=== PATIENT | male | born 1970 | race Caucasian/White ===

== ENCOUNTER 2020-07-04 07:27 | Outpatient (CLI) | payer MEDICARE, MEDICAID, SELFPAY | END 2020-07-04 07:28 | disposition home or self-care (01) | PROVIDERS: PCP Family Medicine; Visit Provider Family Medicine | DX: Z01.10 Encounter for examination of ears and hearing without abnormal findings (principal) | CPT/HCPCS: 92552; 92556; 92567 ==

== ENCOUNTER 2021-07-07 08:51 | Outpatient (CLI) | payer MEDICARE, MEDICAID, SELFPAY | END 2021-07-07 08:52 | disposition home or self-care (01) | PROVIDERS: Visit Provider Family Medicine | DX: Z01.10 Encounter for examination of ears and hearing without abnormal findings (principal) | CPT/HCPCS: 92552; 92556; 92567 ==

== ENCOUNTER 2022-07-17 08:49 | Outpatient (CLI) | payer MEDICARE, MEDICAID, SELFPAY | END 2022-07-17 08:50 | disposition home or self-care (01) | LOC: ANHAUDIO 08:52 | PROVIDERS: PCP Family Medicine; Visit Provider Family Medicine | DX: F84.0 Autistic disorder (principal); H90.42 Sensorineural hearing loss, unilateral, left ear, with unrestricted hearing on the contralateral side | CPT/HCPCS: 92552; 92556; 92567 ==

== ENCOUNTER 2023-08-05 07:55 | Outpatient (CLI) | payer MEDICARE, MEDICAID, SELFPAY | END 2023-08-05 07:56 | disposition home or self-care (01) | LOC: ANHAUDIO 07:59 | PROVIDERS: PCP Family Medicine; Visit Provider Family Medicine | DX: H90.42 Sensorineural hearing loss, unilateral, left ear, with unrestricted hearing on the contralateral side (principal) | CPT/HCPCS: 92557; 92567 ==

== ENCOUNTER 2024-08-10 07:59 | Outpatient (CLI) | payer MEDICARE, MEDICAID, SELFPAY ==
--- OUTSIDE RECORDS SUMMARY | 2024-08-10 08:09 | XMS_ITS ---
Author Organization Unknown Address [address] [place] [phone] Phone Care Team Providers Care Plastics Factory Worker Name Role Phone DMITRI NUÑEZ Attending Unavailable MARCELINO Nova Primary Unavailable Immunization Immunization Date Status Additional Notes Code Code System Hep B, adult 06/12/2014 Completed 43 CVX Hep B, adult 07/31/2014 Completed 43 CVX Hep B, adult 01/01/2015 Completed 43 CVX Tdap 08/21/2013 Completed 115 CVX Tdap 09/15/2023 Completed 115 CVX Influenza, split virus, trivalent, preservative 02/21/2013 Completed 141 CVX Influenza, split virus, trivalent, preservative 02/08/2014 Completed 141 CVX Influenza, split virus, trivalent, preservative 01/19/2024 Completed 141 CVX Influenza, split virus, quadrivalent, preservative 01/20/2017 Completed 158 C VX Influenza, split virus, quadrivalent, preservative 01/26/2018 Completed 158 C VX Influenza, split virus, quadrivalent, preservative 01/25/2019 Completed 158 C VX Influenza, split virus, quadrivalent, preservative 01/17/2020 Completed 158 C VX Influenza, split virus, quadrivalent, preservative 01/22/2021 Completed 158 C VX Influenza, split virus, quadrivalent, preservative 01/14/2022 Completed 158 C VX Influenza, split virus, quadrivalent, preservative 01/13/2023 Completed 158 C VX COVID-19, mRNA, LNP-S, PF, 3 0 mcg/0.3 mL dose 05/30/2020 Completed 208 CVX COVID-19, mRNA, LNP-S, PF, 3 0 mcg/0.3 mL dose 06/20/2020 Completed 208 CVX COVID-19, mRNA, LNP-S, PF, 3 0 mcg/0.3 mL dose 05/08/2021 Completed 208 CVX COVID-19, mRNA, LNP-S, PF, 5 0 mcg/0.5 mL 01/14/2024 Completed 312 CVX Results LIPID PANEL - Collect Date/T taz: 07/06/2023 07:25 [facility] ID: [id number] [place], [phone] LOINC: 94532-5 Test Value Unit Reference Range Code Code System Flag FASTING NO CHOLESTEROL 177 mg/dL L=0 H=200 3-3 LOINC TRIGLYCERIDE 352 mg/dL L=0 H=150 1-8 LOINC H HDL 29 mg/dL L=40 H=60 2084-9 LOINC L LDL 104 mg/dL 2088-1 LOINC TSH - Collect Date/Time: 07:25 [facility] ID: [id number] [place], [id number] LOINC: 77072-9 Test Value Unit Reference Range Code Code System Flag TSH. 2.590 uIU/L L=0.470 H=4.680 90316-1 LOINC T4 FREE - Collect Date/Time: 07/06/2023 07:25 [facility] ID: [id number] [place], [place], [phone] LOINC: 3024-7 Test Value Unit Reference Range Code Code System Flag T4, FREE 0.79 ng/dL L=0.78 H=2.19 3024-7 LOINC COMPREHENSIVE METABOLIC PANE L - Collect Date/Time: 07/06/2023 07:25 [facility] ID: [id number] [place], [phone] LOINC: 50606-2 Test Value Unit Reference Range Code Code System Flag FASTING NO BUN 21 mg/dL L=7 H=20 3094-0 LOINC H CREATININE 1.10 mg/dL L=0.66 H=1.25 2160-0 LOINC GLUCOSE 79 mg/dL L=74 H=106 2345-7 LOINC SODIUM 146 mmol/L L=132 H=144 2951-2 LOINC H POTASSIUM 3.8 mmol/L L=3.5 H=5.1 2823-3 LOINC CHLORIDE 111 mmol/L L=98 H=107 2075-0 LOINC H CO2 24.0 mmol/L L=22.0 H=30.0 2028-9 LOINC ANION GAP 15 L=10 H=20 30224-8 LOINC OSMOLALITY 304 mOs/kG L=280 H=296 50231-1 LOINC H BUN/CREAT 19.1 3097-3 LOINC CALCIUM 9.0 mg/dL L=8.3 H=10.5 98846-2 LOINC AST 33 U/L L=15 H=46 1920-8 LOINC ALT 30 U/L L=9 H=72 1742-6 LOINC ALKALINE PHOS 74 U/L L=38 H=126 6768-6 LOINC TOTAL BILI 0.3 mg/dL L=0.2 H=1.3 1975-2 LOINC ALBUMIN 4.3 G/dL L=3.5 H=5.0 1751-7 LOINC TOTAL PROTEIN 7.0 g/L L=6.3 H=8.2 2885-2 LOINC A/G RATIO 1.6 83045-0 LOINC AGE 52 99085-5 LOINC eGFR NON-AFR 75 ml/min eGFR AFR AMER 91 ml/min HEPATITIS C AB (HCV Ab) - Co llect Date/Time: 07/06/2023 07:25 [facility] ID: [id number] [place], [place], [phone] LOINC: 06815-3 Test Value Unit Reference Range Code Code System Flag Hep C Virus Ab Non Reactive Non Reactive 60757-9 LOINC SEND TO IFC? NO HIV 4th GEN Ab 1&2 p24 Ag in -house - Collect Date/Time: 07/06/2023 07:25 [facility] ID: [id number] [place], [id number] LOINC: 79874-6 Test Value Unit Reference Range Code Code System Flag HIV-1 Ab NEGATIVE NORMAL: NON REACTIVE/NE HIV-2 Ab NEGATIVE HIV-p24 Ag NEGATIVE SEND TO IFC? NO REFLEX? NO 5778-6 LOINC HGB A1C -GLYCOHEMOGLOBIN - C ollect Date/Time: 07/06/2023 07:25 [facility] ID: [id number] [place], [address] LOINC: 4548-4 Test Value Unit Reference Range Code Code System Flag HGBA1C 5.3 % 4548-4 LOINC CBC W/ DIFF - Collect Date/T taz: 07/06/2023 07:25 [facility] ID: [id number] [place], [place], [id number] LOINC: 36799-0 Test Value Unit Reference Range Code Code System Flag WBC 8.8 10^3uL L=4.8 H=10.8 RBC 4.49 10^6uL L=4.60 H=6.20 L HEMOGLOBIN 12.0 g/dL L=14.0 H=18.0 718-7 LOINC L HEMATOCRIT 37.1 VOL% L=42.0 H=52.0 4544-3 LOINC L MCV 82.6 fL L=80.0 H=94.0 MCH 26.7 pg L=27.0 H=32.0 L MCHC 32.3 g/dL L=32.0 H=36.0 PLATELETS 205 10^3uL L=100 H=400 55963-1 LOINC RDW 14.8 % L=11.7 H=15.5 %GRAN 68.9 % L=40.0 H=70.0 60973-5 LOINC %LYMPH 21.4 % L=20.0 H=45.0 736-9 LOINC %MONO 6.9 % L=2.0 H=10.0 02238-3 LOINC %EOS 0.8 % L=0.0 H=6.0 713-8 LOINC %BASO 0.9 % L=0.0 H=3.0 706-2 LOINC #NEUT 6.1 10^3uL L=1.9 H=7.6 17481-5 LOINC #LYMPH 1.9 10^3uL L=0.9 H=4.9 79857-2 LOINC #MONO 0.6 10^3uL L=0.1 H=0.9 19462-7 LOINC #EOS 0.1 10^3uL L=0.0 H=0.6 712-0 LOINC #BASO 0.08 10^3uL L=0.00 H=0.10 92955-6 LOINC #IM GRANS 0.1 10^3uL L=0.0 H=7.0 09800-7 LOINC %IM GRANS 1.1 % L=0.0 H=5.0 72097-9 LOINC %NRB 0.0 L=0.0 H=0.2 61074-5 LOINC #NRB 0.000 L=0.000 H=0.012 77416-8 LOINC MANUAL DIFF NOT INDICATED RBC MORPH NOT INDICATED Social History Type Status Start Date End Date Code Code Syst em Smoking History Never smoker (Never Smoked) 187894063 SNOMED CT Sex Male Medications Medication Start Date End Date Route Frequency Dose Code Code System Medication Instructions Home Meds Acetaminophen 325MG Oral Tablet 12/17/2017 Unknown ORAL NEEDED 325 MILLIGRAMS 352377 RxNorm TAKE 325 MILLIGRAMS ORAL NEEDED Sertraline 50MG Oral Tablet 12/17/2017 Unknown ORAL EVERY 24 HOURS 75 MILLIGRAMS 196728 RxNorm TAKE 75 MILLIGRAMS ORAL EVERY 24 HOURS MiraLAX 17GM/1Dose Oral Powder for Solution 12/17/2017 Unknown BY MOUTH NEEDED DAILY 17 GRAMS 716912 RxNorm TAKE 17 GRAMS BY MOUTH NEEDED DAILY IF NO BM IN 2 DAYS Hospital Discharge Instructions Should you have any questions prior to discharge, please contact a member of your healthcare team. If you have left the hospital and have any questions, please contact your primary care physician. Reason For Referral No Data Found Allergies and Adverse Reactions Allergy Substance Reaction Severity Start Date Concern Status Co de Code System No Known Drug Allergies Active 756108576 SNOMED-CT No Known Drug Allergies Active 898575602 SNOMED-CT Plan of Treatment No Data Found Encounters Encounter Diagnosis Start Date Code Code Sys tem Long-term current use of drug therapy 07/06/2023 710 332867 SNOMED-CT Personal Care Team Section Performer Name Performer Role Active Date Inactive Da te
--- OUTSIDE RECORDS SUMMARY | 2024-08-10 08:09 | XMS_ITS ---
Author Organization Unknown Address [address] [place] [phone] Phone Care Team Providers Care Roll Repairer Name Role Phone MARCELINO Nova Attending Unavailable Immunization Immunization Date Status Additional Notes [...] mcg/0.5 mL 01/14/2024 Completed 312 CVX Results COMPREHENSIVE METABOLIC PANE L - Collect Date/Time: 05/16/2024 07:35 [facility] ID: [id number] [address] [place], [place], [phone] LOINC: 71054-2 Test Value Unit Reference Range Code Code System Flag FASTING NO BUN 16 mg/dL L=7 H=20 3094-0 LOINC CREATININE 1.10 mg/dL L=0.66 H=1.25 2160-0 LOINC GLUCOSE 130 mg/dL L=74 H=106 2345-7 LOINC H SODIUM 142 mmol/L L=132 H=144 2951-2 LOINC POTASSIUM 3.7 mmol/L L=3.5 H=5.1 2823-3 LOINC CHLORIDE 104 mmol/L L=98 H=107 2075-0 LOINC CO2 25.0 mmol/L L=22.0 H=30.0 8-9 LOINC ANION GAP 17 L=10 H=20 49308-2 LOINC OSMOLALITY 297 mOs/kG L=280 H=296 15302-1 LOINC H BUN/CREAT 14.5 3097-3 LOINC CALCIUM 9.1 mg/dL L=8.3 H=10.5 42345-7 LOINC AST 26 U/L L=15 H=46 1920-8 LOINC ALT 27 U/L L=9 H=72 1742-6 LOINC ALKALINE PHOS 72 U/L L=38 H=126 6768-6 LOINC TOTAL BILI 0.6 mg/dL L=0.2 H=1.3 1975-2 LOINC ALBUMIN 4.6 G/dL L=3.5 H=5.0 1751-7 LOINC TOTAL PROTEIN 7.2 g/L L=6.3 H=8.2 2885-2 LOINC A/G RATIO 1.8 52169-9 LOINC AGE 53 39129-9 LOINC eGFR NON-AFR 74 ml/min eGFR AFR AMER 90 ml/min TSH - Collect Date/Time: 11/2024 07:35 [facility] ID: [id number] [place] [address], [id number] LOINC: 86650-9 Test Value Unit Reference Range Code Code System Flag TSH. 1.670 uIU/L L=0.470 H=4.680 78588-0 LOINC PSA-SCREENING - Collect Date /Time: 05/16/2024 07:35 [facility] ID: [id number] [address] [place] [address], [id number] LOINC: 2857-1 Test Value Unit Reference Range Code Code System Flag PSA SCREEN 0.7 ng/mL L=0.0 H=4.0 2857-1 LOINC LIPID PANEL - Collect Date/T taz: 05/16/2024 07:35 [facility] ID: [id number] [address] [place] [address], [id number] LOINC: 66594-8 Test Value Unit Reference Range Code Code System Flag FASTING NO CHOLESTEROL 209 mg/dL L=0 H=200 2093-3 LOINC H TRIGLYCERIDE 270 mg/dL L=0 H=150 2571-8 LOINC H HDL 33 mg/dL L=40 H=60 2085-9 LOINC L LDL 133 mg/dL 9-1 LOINC HGB A1C -GLYCOHEMOGLOBIN - C ollect Date/Time: 05/16/2024 07:35 [facility] ID: [id number] [address] [place] [address], [id number] LOINC: 4548-4 Test Value Unit Reference Range Code Code System Flag HGBA1C 5.4 % 4548-4 LOINC CBC W/ DIFF - Collect Date/T taz: 05/16/2024 07:35 [facility] ID: [id number] [address] [place], [place], [phone] LOINC: 73951-9 Test Value Unit Reference Range Code Code System Flag WBC 6.4 10^3uL L=4.8 H=10.8 RBC 5.33 10^6uL L=4.60 H=6.20 HEMOGLOBIN 14.8 g/dL L=14.0 H=18.0 718-7 LOINC HEMATOCRIT 45.2 VOL% L=42.0 H=52.0 4544-3 LOINC MCV 84.8 fL L=80.0 H=94.0 MCH 27.8 pg L=27.0 H=32.0 MCHC 32.7 g/dL L=32.0 H=36.0 PLATELETS 196 10^3uL L=100 H=400 38432-1 LOINC RDW 15.6 % L=11.7 H=15.5 H %GRAN 71.7 % L=40.0 H=70.0 86956-7 LOINC H %LYMPH 20.9 % L=20.0 H=45.0 736-9 LOINC %MONO 4.4 % L=2.0 H=10.0 35299-7 LOINC %EOS 1.9 % L=0.0 H=6.0 713-8 LOINC %BASO 0.8 % L=0.0 H=3.0 706-2 LOINC #NEUT 4.6 10^3uL L=1.9 H=7.6 80462-9 LOINC #LYMPH 1.3 10^3uL L=0.9 H=4.9 60848-3 LOINC #MONO 0.3 10^3uL L=0.1 H=0.9 86747-6 LOINC #EOS 0.1 10^3uL L=0.0 H=0.6 712-0 LOINC #BASO 0.05 10^3uL L=0.00 H=0.10 73660-5 LOINC #IM GRANS 0.0 10^3uL L=0.0 H=7.0 65896-6 LOINC %IM GRANS 0.3 % L=0.0 H=5.0 43014-2 LOINC %NRB 0.0 L=0.0 H=0.2 64485-9 LOINC #NRB 0.000 L=0.000 H=0.012 14525-6 LOINC MANUAL DIFF NOT INDICATED RBC MORPH NOT INDICATED Social History Type Status Start Date End Date Code Code Syst em Smoking History Never smoker (Never Smoked) 559180488 SNOMED CT Sex Male Medications Medication Start Date End Date Route Frequency Dose Code Code System Medication Instructions Home Meds Acetaminophen 325MG Oral Tablet 12/17/2017 Unknown ORAL NEEDED 325 MILLIGRAMS 145767 RxNorm TAKE 325 MILLIGRAMS ORAL NEEDED Sertraline 50MG Oral Tablet 12/17/2017 Unknown ORAL EVERY 24 HOURS 75 MILLIGRAMS 919777 RxNorm TAKE 75 MILLIGRAMS ORAL EVERY 24 HOURS MiraLAX 17GM/1Dose Oral Powder for Solution 12/17/2017 Unknown BY MOUTH NEEDED DAILY 17 GRAMS 125402 RxNorm TAKE 17 GRAMS BY MOUTH NEEDED [...] Code System No Known Drug Allergies Active 418442612 SNOMED-CT No Known Drug Allergies Active 208955144 SNOMED-CT Plan of Treatment No Data Found Encounters Encounter Diagnosis Start Date Code Code Sys tem Other prison (current) drug therapy 05/16/2024 SNOMED-CT Personal Care Team Section Performer Name Performer Role Active Date Inactive Da te
--- OUTSIDE RECORDS SUMMARY | 2024-08-10 08:10 | XMS_ITS ---
Author Organization Unknown Address [address] [place] [phone] Phone Care Team Providers Care Research Manager Name Role Phone ROOSEVELT DARDEN Attending Unavailable MARCELINO Nvoa Primary Unavailable Immunization Immunization Date Status Additional [...] mcg/0.5 mL 01/14/2024 Completed 312 CVX Results CBC W/ DIFF - Collect Date/T taz: 11/26/2023 12:06 [facility] ID: [id number] [address] [place], [place], [id number] LOINC: 54733-0 Test Value Unit Reference Range Code Code System Flag WBC 6.8 10^3uL L=4.8 H=10.8 RBC 4.50 10^6uL L=4.60 H=6.20 L HEMOGLOBIN 9.9 g/dL L=14.0 H=18.0 718-7 LOINC L HEMATOCRIT 33.5 VOL% L=42.0 H=52.0 4544-3 LOINC L MCV 74.4 fL L=80.0 H=94.0 L MCH 22.0 pg L=27.0 H=32.0 L MCHC 29.6 g/dL L=32.0 H=36.0 L PLATELETS 217 10^3uL L=100 H=400 59126-7 LOINC RDW 17.2 % L=11.7 H=15.5 H %GRAN 60.9 % L=40.0 H=70.0 94094-3 LOINC %LYMPH 23.1 % L=20.0 H=45.0 736-9 LOINC %MONO 8.7 % L=2.0 H=10.0 36102-9 LOINC %EOS 5.4 % L=0.0 H=6.0 713-8 LOINC %BASO 0.9 % L=0.0 H=3.0 706-2 LOINC #NEUT 4.1 10^3uL L=1.9 H=7.6 77515-7 LOINC #LYMPH 1.6 10^3uL L=0.9 H=4.9 14612-7 LOINC #MONO 0.6 10^3uL L=0.1 H=0.9 17053-6 LOINC #EOS 0.4 10^3uL L=0.0 H=0.6 712-0 LOINC #BASO 0.06 10^3uL L=0.00 H=0.10 94321-5 LOINC #IM GRANS 0.1 10^3uL L=0.0 H=7.0 60816-1 LOINC %IM GRANS 1.0 % L=0.0 H=5.0 42426-1 LOINC %NRB 0.0 L=0.0 H=0.2 57244-9 LOINC #NRB 0.000 L=0.000 H=0.012 35719-1 LOINC MANUAL DIFF NOT INDICATED RBC MORPH NOT INDICATED IRON PANEL - Collect Date/Ti me: 11/26/2023 12:06 [facility] ID: [id number] [place] [address], [id number] LOINC: Test Value Unit Reference Range Code Code System Flag IRON 35 ug/dL L=49 H=181 2498-4 LOINC L TIBC 412 ug/dL L=261 H=462 2500-7 LOINC %SATURATION 8 % L=13 H=45 2708-6 LOINC L FERRITIN - Collect Date/Time : 11/26/2023 12:06 [facility] ID: [id number] [place] [address], [id number] LOINC: 2276-4 Test Value Unit Reference Range Code Code System Flag FERRITIN 10.0 ng/mL L=17.9 H=464 2276-4 LOINC L D-DIMER (TRIAGE) - Collect D ate/Time: 11/26/2023 12:06 [facility] ID: [id number] [address] [place] [address], [id number] LOINC: 7799-0 Test Value Unit Reference Range Code Code System Flag D-DIMER 1240 ng/mL L=0 I=3931 7799-0 LOINC Social History Type Status Start Date End Date Code Code Syst em Smoking History Never smoker (Never Smoked) 073231263 SNOMED CT Sex Male Medications Medication Start Date End Date Route Frequency Dose Code Code System Medication Instructions Home Meds Acetaminophen 325MG Oral Tablet 12/17/2017 Unknown ORAL NEEDED 325 MILLIGRAMS 799322 RxNorm TAKE 325 MILLIGRAMS ORAL NEEDED Sertraline 50MG Oral Tablet 12/17/2017 Unknown ORAL EVERY 24 HOURS 75 MILLIGRAMS 635519 RxNorm TAKE 75 MILLIGRAMS ORAL EVERY 24 HOURS MiraLAX 17GM/1Dose Oral Powder for Solution 12/17/2017 Unknown BY MOUTH NEEDED DAILY 17 GRAMS 865346 RxNorm TAKE 17 GRAMS BY MOUTH NEEDED [...] Code System No Known Drug Allergies Active 693247244 SNOMED-CT No Known Drug Allergies Active 246209070 SNOMED-CT Plan of Treatment No Data Found Encounters Encounter Diagnosis Start Date Code Code Sys tem Anemia, unspecified 11/26/2023 SNOMED-C T Personal Care Team Section Performer Name Performer Role Active Date Inactive Víctor oleary
--- OUTSIDE RECORDS SUMMARY | 2024-08-10 08:10 | XMS_ITS ---
Author Organization Unknown Address [address] [place] [phone] Phone Care Team Providers Care Industrial Analyst Name Role Phone MARCELINO Nova Attending Unavailable [...] COMPREHENSIVE METABOLIC PANE L - Collect Date/Time: 08/10/2023 06:40 [facility] ID: [id number] [address] [place], [place], [phone] LOINC: 86790-4 Test Value Unit Reference Range Code Code System Flag FASTING YES BUN 16 mg/dL L=7 H=20 3094-0 LOINC CREATININE 1.10 mg/dL L=0.66 H=1.25 2160-0 LOINC GLUCOSE 113 mg/dL L=74 H=106 2345-7 LOINC H SODIUM 145 mmol/L L=132 H=144 2951-2 LOINC H POTASSIUM 4.0 mmol/L L=3.5 H=5.1 2823-3 LOINC CHLORIDE 109 mmol/L L=98 H=107 2075-0 LOINC H CO2 25.0 mmol/L L=22.0 H=30.0 8-9 LOINC ANION GAP 15 L=10 H=20 15457-1 LOINC OSMOLALITY 302 mOs/kG L=280 H=296 13409-0 LOINC H BUN/CREAT 14.5 3097-3 LOINC CALCIUM 9.1 mg/dL L=8.3 H=10.5 91955-2 LOINC AST 25 U/L L=15 H=46 1920-8 LOINC ALT 22 U/L L=9 H=72 1742-6 LOINC ALKALINE PHOS 77 U/L L=38 H=126 6768-6 LOINC TOTAL BILI 0.5 mg/dL L=0.2 H=1.3 1975-2 LOINC ALBUMIN 4.6 G/dL L=3.5 H=5.0 1751-7 LOINC TOTAL PROTEIN 7.6 g/L L=6.3 H=8.2 2885-2 LOINC A/G RATIO 1.5 53508-9 LOINC AGE 52 11616-0 LOINC eGFR NON-AFR 75 ml/min eGFR AFR AMER 91 ml/min CBC W/ DIFF - Collect Date/T taz: 08/10/2023 06:40 [facility] ID: [id number] [address] [place], [place], [id number] LOINC: 47935-2 Test Value Unit Reference Range Code Code System Flag WBC 7.6 10^3uL L=4.8 H=10.8 RBC 4.91 10^6uL L=4.60 H=6.20 HEMOGLOBIN 12.4 g/dL L=14.0 H=18.0 718-7 LOINC L HEMATOCRIT 39.7 VOL% L=42.0 H=52.0 4544-3 LOINC L MCV 80.9 fL L=80.0 H=94.0 MCH 25.3 pg L=27.0 H=32.0 L MCHC 31.2 g/dL L=32.0 H=36.0 L PLATELETS 240 10^3uL L=100 H=400 27554-6 LOINC RDW 14.6 % L=11.7 H=15.5 %GRAN 73.8 % L=40.0 H=70.0 16537-4 LOINC H %LYMPH 19.1 % L=20.0 H=45.0 736-9 LOINC L %MONO 5.4 % L=2.0 H=10.0 29395-9 LOINC %EOS 0.4 % L=0.0 H=6.0 713-8 LOINC %BASO 0.9 % L=0.0 H=3.0 706-2 LOINC #NEUT 5.6 10^3uL L=1.9 H=7.6 10897-6 LOINC #LYMPH 1.4 10^3uL L=0.9 H=4.9 17869-1 LOINC #MONO 0.4 10^3uL L=0.1 H=0.9 16242-1 LOINC #EOS 0.0 10^3uL L=0.0 H=0.6 712-0 LOINC #BASO 0.07 10^3uL L=0.00 H=0.10 36199-1 LOINC #IM GRANS 0.0 10^3uL L=0.0 H=7.0 22701-1 LOINC %IM GRANS 0.4 % L=0.0 H=5.0 96105-7 LOINC %NRB 0.0 L=0.0 H=0.2 89792-4 LOINC #NRB 0.000 L=0.000 H=0.012 74398-0 LOINC MANUAL DIFF NOT INDICATED RBC MORPH Social History Type Status Start Date End Date Code Code Syst em Smoking History Never smoker (Never Smoked) 349641207 SNOMED CT Sex Male Medications Medication Start Date End Date Route Frequency Dose Code Code System Medication Instructions Home Meds Acetaminophen 325MG Oral Tablet 12/17/2017 Unknown ORAL NEEDED 325 MILLIGRAMS 687659 RxNorm TAKE 325 MILLIGRAMS ORAL NEEDED Sertraline 50MG Oral Tablet 12/17/2017 Unknown ORAL EVERY 24 HOURS 75 MILLIGRAMS 527314 RxNorm TAKE 75 MILLIGRAMS ORAL EVERY 24 HOURS MiraLAX 17GM/1Dose Oral Powder for Solution 12/17/2017 Unknown BY MOUTH NEEDED DAILY 17 GRAMS 761351 RxNorm TAKE 17 GRAMS BY MOUTH NEEDED [...] Code System No Known Drug Allergies Active 078329841 SNOMED-CT No Known Drug Allergies Active 259677249 SNOMED-CT Plan of Treatment No Data Found Encounters Encounter Diagnosis Start Date Code Code 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
--- OUTSIDE RECORDS SUMMARY | 2024-08-10 08:10 | XMS_ITS ---
Author Organization Unknown Address [address] [place] [phone] Phone Care Team Providers Care Process Improvement Specialist Name Role Phone MARCELINO Nova Attending Unavailable [...] COMPREHENSIVE METABOLIC PANE L - Collect Date/Time: 11/16/2023 06:20 [facility] ID: [id number] [address] [place], [place], [phone] LOINC: 90374-4 Test Value Unit Reference Range Code Code System Flag FASTING YES BUN 15 mg/dL L=7 H=20 3094-0 LOINC CREATININE 1.20 mg/dL L=0.66 H=1.25 2160-0 LOINC GLUCOSE 90 mg/dL L=74 H=106 2345-7 LOINC SODIUM 141 mmol/L L=132 H=144 2951-2 LOINC POTASSIUM 4.0 mmol/L L=3.5 H=5.1 2823-3 LOINC CHLORIDE 112 mmol/L L=98 H=107 2075-0 LOINC H CO2 25.0 mmol/L L=22.0 H=30.0 8-9 LOINC ANION GAP 8 L=10 H=20 13370-3 LOINC L OSMOLALITY 292 mOs/kG L=280 H=296 68993-0 LOINC BUN/CREAT 12.5 3097-3 LOINC CALCIUM 9.3 mg/dL L=8.3 H=10.5 66054-8 LOINC AST 25 U/L L=15 H=46 1920-8 LOINC ALT 20 U/L L=9 H=72 1742-6 LOINC ALKALINE PHOS 84 U/L L=38 H=126 6768-6 LOINC TOTAL BILI 0.4 mg/dL L=0.2 H=1.3 1975-2 LOINC ALBUMIN 4.0 G/dL L=3.5 H=5.0 1751-7 LOINC TOTAL PROTEIN 6.9 g/L L=6.3 H=8.2 2885-2 LOINC A/G RATIO 1.4 29581-6 LOINC AGE 53 15701-2 LOINC eGFR NON-AFR 67 ml/min eGFR AFR AMER 81 ml/min CBC W/ DIFF - Collect Date/T taz: 11/16/2023 06:20 [facility] ID: [id number] [place], [place], [id number] LOINC: 96406-3 Test Value Unit Reference Range Code Code System Flag WBC 6.9 10^3uL L=4.8 H=10.8 RBC 4.64 10^6uL L=4.60 H=6.20 HEMOGLOBIN 10.4 g/dL L=14.0 H=18.0 718-7 LOINC L HEMATOCRIT 34.7 VOL% L=42.0 H=52.0 4544-3 LOINC L MCV 74.8 fL L=80.0 H=94.0 L MCH 22.4 pg L=27.0 H=32.0 L MCHC 30.0 g/dL L=32.0 H=36.0 L PLATELETS 264 10^3uL L=100 H=400 84813-0 LOINC RDW 17.5 % L=11.7 H=15.5 H %GRAN 64.3 % L=40.0 H=70.0 49736-3 LOINC %LYMPH 17.4 % L=20.0 H=45.0 736-9 LOINC L %MONO 9.0 % L=2.0 H=10.0 96063-8 LOINC %EOS 7.5 % L=0.0 H=6.0 713-8 LOINC H %BASO 0.9 % L=0.0 H=3.0 706-2 LOINC #NEUT 4.4 10^3uL L=1.9 H=7.6 17768-4 LOINC #LYMPH 1.2 10^3uL L=0.9 H=4.9 75613-3 LOINC #MONO 0.6 10^3uL L=0.1 H=0.9 08922-2 LOINC #EOS 0.5 10^3uL L=0.0 H=0.6 712-0 LOINC #BASO 0.06 10^3uL L=0.00 H=0.10 92802-7 LOINC #IM GRANS 0.1 10^3uL L=0.0 H=7.0 68087-9 LOINC %IM GRANS 0.9 % L=0.0 H=5.0 17013-1 LOINC %NRB 0.0 L=0.0 H=0.2 08737-9 LOINC #NRB 0.000 L=0.000 H=0.012 25594-7 LOINC MANUAL DIFF NOT INDICATED RBC MORPH NOT INDICATED Social History Type Status Start Date End Date Code Code Syst em Smoking History Never smoker (Never Smoked) 032992524 SNOMED CT Sex Male Medications Medication Start Date End Date Route Frequency Dose Code Code System Medication Instructions Home Meds Acetaminophen 325MG Oral Tablet 12/17/2017 Unknown ORAL NEEDED 325 MILLIGRAMS 494705 RxNorm TAKE 325 MILLIGRAMS ORAL NEEDED Sertraline 50MG Oral Tablet 12/17/2017 Unknown ORAL EVERY 24 HOURS 75 MILLIGRAMS 635695 RxNorm TAKE 75 MILLIGRAMS ORAL EVERY 24 HOURS MiraLAX 17GM/1Dose Oral Powder for Solution 12/17/2017 Unknown BY MOUTH NEEDED DAILY 17 GRAMS 291181 RxNorm TAKE 17 GRAMS BY MOUTH NEEDED [...] Code System No Known Drug Allergies Active 417642170 SNOMEDBrightLineCT No Known Drug Allergies Active 761813601 SNOMED-CT Plan of Treatment No Data Found Encounters Encounter Diagnosis Start Date Code Code Sys tem Other care home (current) drug therapy 11/16/2023 SNOMED-CT Personal Care Team Section Performer Name Performer Role Active Date Inactive Víctor oleary
--- OUTSIDE RECORDS SUMMARY | 2024-08-10 08:10 | XMS_ITS ---
Author Organization Unknown Address [address] [place] [phone] Phone Care Team Providers Care Hourly Team Members Name Role Phone MARCELINO Nova Attending Unavailable [...] COMPREHENSIVE METABOLIC PANE L - Collect Date/Time: 08/07/2024 07:30 [facility] ID: [id number] [address] [place], [place], [phone] LOINC: 36870-7 Test Value Unit Reference Range Code Code System Flag FASTING NO BUN 16 mg/dL L=7 H=20 3094-0 LOINC CREATININE 1.00 mg/dL L=0.66 H=1.25 2160-0 LOINC GLUCOSE 79 mg/dL L=74 H=106 2345-7 LOINC SODIUM 142 mmol/L L=132 H=144 2951-2 LOINC POTASSIUM 4.1 mmol/L L=3.5 H=5.1 2823-3 LOINC CHLORIDE 107 mmol/L L=98 H=107 2075-0 LOINC CO2 27.0 mmol/L L=22.0 H=30.0 8-9 LOINC ANION GAP 12 L=10 H=20 62556-7 LOINC OSMOLALITY 294 mOs/kG L=280 H=296 86872-6 LOINC BUN/CREAT 16.0 3097-3 LOINC CALCIUM 8.8 mg/dL L=8.3 H=10.5 39260-9 LOINC AST 22 U/L L=15 H=46 1920-8 LOINC ALT 21 U/L L=9 H=72 1742-6 LOINC ALKALINE PHOS 72 U/L L=38 H=126 6768-6 LOINC TOTAL BILI 0.2 mg/dL L=0.2 H=1.3 1975-2 LOINC ALBUMIN 3.8 G/dL L=3.5 H=5.0 1751-7 LOINC TOTAL PROTEIN 6.8 g/L L=6.3 H=8.2 2885-2 LOINC A/G RATIO 1.3 54658-5 LOINC AGE 53 48630-2 LOINC eGFR NON-AFR 83 ml/min eGFR AFR AMER 100 ml/min CBC W/ DIFF - Collect Date/T taz: 08/07/2024 07:30 [facility] ID: [id number] [address] [place], [place], [id number] LOINC: 12926-1 Test Value Unit Reference Range Code Code System Flag WBC 6.4 10^3uL L=4.8 H=10.8 RBC 4.92 10^6uL L=4.60 H=6.20 HEMOGLOBIN 13.9 g/dL L=14.0 H=18.0 718-7 LOINC L HEMATOCRIT 43.1 VOL% L=42.0 H=52.0 4544-3 LOINC MCV 87.6 fL L=80.0 H=94.0 MCH 28.3 pg L=27.0 H=32.0 MCHC 32.3 g/dL L=32.0 H=36.0 PLATELETS 226 10^3uL L=100 H=400 54237-0 LOINC RDW 13.3 % L=11.7 H=15.5 %GRAN 67.5 % L=40.0 H=70.0 50662-9 LOINC %LYMPH 18.2 % L=20.0 H=45.0 736-9 LOINC L %MONO 5.1 % L=2.0 H=10.0 69929-2 LOINC %EOS 4.3 % L=0.0 H=6.0 713-8 LOINC %BASO 1.2 % L=0.0 H=3.0 706-2 LOINC #NEUT 4.3 10^3uL L=1.9 H=7.6 79627-0 LOINC #LYMPH 1.2 10^3uL L=0.9 H=4.9 39661-7 LOINC #MONO 0.3 10^3uL L=0.1 H=0.9 20426-3 LOINC #EOS 0.3 10^3uL L=0.0 H=0.6 712-0 LOINC #BASO 0.08 10^3uL L=0.00 H=0.10 85080-2 LOINC #IM GRANS 0.2 10^3uL L=0.0 H=7.0 48365-5 LOINC %IM GRANS 3.7 % L=0.0 H=5.0 84297-8 LOINC %NRB 0.0 L=0.0 H=0.2 80123-6 LOINC #NRB 0.000 L=0.000 H=0.012 19306-6 LOINC MANUAL DIFF NOT INDICATED RBC MORPH NOT INDICATED Social History Type Status Start Date End Date Code Code Syst em Smoking History Never smoker (Never Smoked) 611671953 SNOMED CT Sex Male Medications Medication Start Date End Date Route Frequency Dose Code Code System Medication Instructions Home Meds Acetaminophen 325MG Oral Tablet 12/17/2017 Unknown ORAL NEEDED 325 MILLIGRAMS 710180 RxNorm TAKE 325 MILLIGRAMS ORAL NEEDED Sertraline 50MG Oral Tablet 12/17/2017 Unknown ORAL EVERY 24 HOURS 75 MILLIGRAMS 905247 RxNorm TAKE 75 MILLIGRAMS ORAL EVERY 24 HOURS MiraLAX 17GM/1Dose Oral Powder for Solution 12/17/2017 Unknown BY MOUTH NEEDED DAILY 17 GRAMS 040116 RxNorm TAKE 17 GRAMS BY MOUTH NEEDED [...] Code System No Known Drug Allergies Active 247337863 SNOMED-CT No Known Drug Allergies Active 497062031 SNOMED-CT Plan of Treatment No Data Found Encounters Encounter Diagnosis Start Date Code Code 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
--- OUTSIDE RECORDS SUMMARY | 2024-08-10 08:11 | XMS_ITS ---
Author Organization Unknown Address [address] [place] [phone] Phone Care Team Providers Care Junior Accountant Name Role Phone MARCELINO Nova Attending Unavailable [...] COMPREHENSIVE METABOLIC PANE L - Collect Date/Time: 05/18/2023 07:20 [facility] ID: [id number] [address] [place], [place], [phone] LOINC: 90473-0 Test Value Unit Reference Range Code Code System Flag FASTING NO BUN 16 mg/dL L=7 H=20 3094-0 LOINC CREATININE 1.10 mg/dL L=0.66 H=1.25 2160-0 LOINC GLUCOSE 67 mg/dL L=74 H=106 2345-7 LOINC L SODIUM 144 mmol/L L=132 H=144 2951-2 LOINC POTASSIUM 4.0 mmol/L L=3.5 H=5.1 2823-3 LOINC CHLORIDE 107 mmol/L L=98 H=107 2075-0 LOINC CO2 26.0 mmol/L L=22.0 H=30.0 2028-9 LOINC ANION GAP 15 L=10 H=20 88038-3 LOINC OSMOLALITY 297 mOs/kG L=280 H=296 49642-0 LOINC H BUN/CREAT 14.5 3097-3 LOINC CALCIUM 9.0 mg/dL L=8.3 H=10.5 19538-7 LOINC AST 24 U/L L=15 H=46 1920-8 LOINC ALT 22 U/L L=9 H=72 1742-6 LOINC ALKALINE PHOS 78 U/L L=38 H=126 6768-6 LOINC TOTAL BILI 0.5 mg/dL L=0.2 H=1.3 1975-2 LOINC ALBUMIN 4.4 G/dL L=3.5 H=5.0 1751-7 LOINC TOTAL PROTEIN 7.3 g/L L=6.3 H=8.2 2885-2 LOINC A/G RATIO 1.5 93632-8 LOINC AGE 52 55560-7 LOINC eGFR NON-AFR 75 ml/min eGFR AFR AMER 91 ml/min LIPID PANEL - Collect Date/T taz: 05/18/2023 07:20 [facility] ID: [id number] [place], [phone] LOINC: 16641-2 Test Value Unit Reference Range Code Code System Flag FASTING NO CHOLESTEROL 193 mg/dL L=0 H=200 3-3 LOINC TRIGLYCERIDE 304 mg/dL L=0 H=150 2571-8 LOINC H HDL 28 mg/dL L=40 H=60 2084-9 LOINC L LDL 118 mg/dL 2088-1 LOINC TSH - Collect Date/Time: 01/2024 07:20 [facility] ID: [id number] [address] [place] [address], [phone] LOINC: 55120-7 Test Value Unit Reference Range Code Code System Flag TSH. 1.650 uIU/L L=0.470 H=4.680 60572-8 LOINC T4 FREE - Collect Date/Time: 05/18/2023 07:20 [facility] ID: [id number] [place] [address], [phone] LOINC: 3024-7 Test Value Unit Reference Range Code Code System Flag T4, FREE 0.88 ng/dL L=0.78 H=2.19 3024-7 LOINC PSA-SCREENING - Collect Date /Time: 05/18/2023 07:20 [facility] ID: [id number] [address] [place] [address], [phone] LOINC: 2857-1 Test Value Unit Reference Range Code Code System Flag PSA SCREEN 0.7 ng/mL L=0.0 H=4.0 2857-1 LOINC HGB A1C -GLYCOHEMOGLOBIN - C ollect Date/Time: 05/18/2023 07:20 [facility] ID: [id number] [address] [place], [place], [phone] LOINC: 4548-4 Test Value Unit Reference Range Code Code System Flag HGBA1C 5.3 % 4548-4 LOINC CBC W/ DIFF - Collect Date/T taz: 05/18/2023 07:20 [facility] ID: [id number] [address] [place], [place], [phone] LOINC: 21130-3 Test Value Unit Reference Range Code Code System Flag WBC 6.6 10^3uL L=4.8 H=10.8 RBC 5.18 10^6uL L=4.60 H=6.20 HEMOGLOBIN 14.8 g/dL L=14.0 H=18.0 718-7 LOINC HEMATOCRIT 44.2 VOL% L=42.0 H=52.0 4544-3 LOINC MCV 85.3 fL L=80.0 H=94.0 MCH 28.6 pg L=27.0 H=32.0 MCHC 33.5 g/dL L=32.0 H=36.0 PLATELETS 205 10^3uL L=100 H=400 72521-1 LOINC RDW 13.6 % L=11.7 H=15.5 %GRAN 67.3 % L=40.0 H=70.0 03261-5 LOINC %LYMPH 20.9 % L=20.0 H=45.0 736-9 LOINC %MONO 6.9 % L=2.0 H=10.0 67124-3 LOINC %EOS 3.3 % L=0.0 H=6.0 713-8 LOINC %BASO 1.1 % L=0.0 H=3.0 706-2 LOINC #NEUT 4.5 10^3uL L=1.9 H=7.6 96450-7 LOINC #LYMPH 1.4 10^3uL L=0.9 H=4.9 51712-5 LOINC #MONO 0.5 10^3uL L=0.1 H=0.9 69069-0 LOINC #EOS 0.2 10^3uL L=0.0 H=0.6 712-0 LOINC #BASO 0.07 10^3uL L=0.00 H=0.10 84250-2 LOINC #IM GRANS 0.0 10^3uL L=0.0 H=7.0 63706-9 LOINC %IM GRANS 0.5 % L=0.0 H=5.0 35890-3 LOINC %NRB 0.0 L=0.0 H=0.2 35863-6 LOINC #NRB 0.000 L=0.000 H=0.012 44971-7 LOINC MANUAL DIFF NOT INDICATED RBC MORPH NOT INDICATED Social History Type Status Start Date End Date Code Code Syst em Smoking History Never smoker (Never Smoked) [id number] SNOMED CT Sex Male Medications Medication Start Date End Date Route Frequency Dose Code Code System Medication Instructions Home Meds Acetaminophen 325MG Oral Tablet 12/17/2017 Unknown ORAL NEEDED 325 MILLIGRAMS 276467 RxNorm TAKE 325 MILLIGRAMS ORAL NEEDED Sertraline 50MG Oral Tablet 12/17/2017 Unknown ORAL EVERY 24 HOURS 75 MILLIGRAMS 241850 RxNorm TAKE 75 MILLIGRAMS ORAL EVERY 24 HOURS MiraLAX 17GM/1Dose Oral Powder for Solution 12/17/2017 Unknown BY MOUTH NEEDED DAILY 17 GRAMS 351511 RxNorm TAKE 17 GRAMS BY MOUTH NEEDED [...] Code System No Known Drug Allergies Active 812842708 SNOMED-CT No Known Drug Allergies Active 825252400 SNOMED-CT Plan of Treatment No Data Found Encounters Encounter Diagnosis Start Date Code Code Sys tem Other intermediate (current) drug therapy 05/18/2023 SNOMED-CT Personal Care Team Section Performer Name Performer Role Active Date Inactive Da mamta
--- OUTSIDE RECORDS SUMMARY | 2024-08-10 08:11 | XMS_ITS ---
Author Organization Unknown Address [address] [place] [phone] Phone Care Team Providers Care Full Time Staff Interpreter Name Role Phone DMITRI NUÑEZ Attending Unavailable [...] Results LIPID PANEL - Collect Date/T taz: 09/28/2023 07:25 [facility] ID: [id number] [address] [place] [address], [phone] LOINC: 07302-1 Test Value Unit Reference Range Code Code System Flag FASTING NO CHOLESTEROL 171 mg/dL L=0 H=200 2093-3 LOINC TRIGLYCERIDE 370 mg/dL L=0 H=150 2571-8 LOINC H HDL 27 mg/dL L=40 H=60 2084-9 LOINC L LDL 104 mg/dL 2088-1 LOINC TSH - Collect Date/Time: 07:25 [facility] ID: [id number] [address] [place] [address], [phone] LOINC: 43774-2 Test Value Unit Reference Range Code Code System Flag TSH. 1.490 uIU/L L=0.470 H=4.680 37503-2 LOINC COMPREHENSIVE METABOLIC PANE L - Collect Date/Time: 09/28/2023 07:25 [facility] ID: [id number] [address] [place] [address], [phone] LOINC: 49697-8 Test Value Unit Reference Range Code Code System Flag FASTING NO BUN 16 mg/dL L=7 H=20 3094-0 LOINC CREATININE 1.10 mg/dL L=0.66 H=1.25 2160-0 LOINC GLUCOSE 99 mg/dL L=74 H=106 2345-7 LOINC SODIUM 142 mmol/L L=132 H=144 2951-2 LOINC POTASSIUM 3.7 mmol/L L=3.5 H=5.1 2823-3 LOINC CHLORIDE 106 mmol/L L=98 H=107 2075-0 LOINC CO2 25.0 mmol/L L=22.0 H=30.0 8-9 LOINC ANION GAP 15 L=10 H=20 38788-9 LOINC OSMOLALITY 295 mOs/kG L=280 H=296 03228-8 LOINC BUN/CREAT 14.5 3097-3 LOINC CALCIUM 9.3 mg/dL L=8.3 H=10.5 17019-9 LOINC AST 26 U/L L=15 H=46 1920-8 LOINC ALT 22 U/L L=9 H=72 1742-6 LOINC ALKALINE PHOS 77 U/L L=38 H=126 6768-6 LOINC TOTAL BILI 0.5 mg/dL L=0.2 H=1.3 1975-2 LOINC ALBUMIN 4.2 G/dL L=3.5 H=5.0 1751-7 LOINC TOTAL PROTEIN 7.2 g/L L=6.3 H=8.2 2885-2 LOINC A/G RATIO 1.4 61084-2 LOINC AGE 52 18257-4 LOINC eGFR NON-AFR 75 ml/min eGFR AFR AMER 91 ml/min HGB A1C -GLYCOHEMOGLOBIN - C ollect Date/Time: 09/28/2023 07:25 [facility] ID: [id number] [address] [place] [address], [phone] LOINC: 4548-4 Test Value Unit Reference Range Code Code System Flag HGBA1C 5.4 % 4548-4 LOINC CBC W/ DIFF - Collect Date/T taz: 09/28/2023 07:25 [facility] ID: [id number] [address] [place] [address], [phone] LOINC: 69746-6 Test Value Unit Reference Range Code Code System Flag WBC 5.5 10^3uL L=4.8 H=10.8 RBC 5.26 10^6uL L=4.60 H=6.20 HEMOGLOBIN 12.3 g/dL L=14.0 H=18.0 718-7 LOINC L HEMATOCRIT 40.8 VOL% L=42.0 H=52.0 4544-3 LOINC L MCV 77.6 fL L=80.0 H=94.0 L MCH 23.4 pg L=27.0 H=32.0 L MCHC 30.1 g/dL L=32.0 H=36.0 L PLATELETS 168 10^3uL L=100 H=400 93220-2 LOINC RDW 15.4 % L=11.7 H=15.5 %GRAN 66.7 % L=40.0 H=70.0 21726-7 LOINC %LYMPH 21.1 % L=20.0 H=45.0 736-9 LOINC %MONO 5.5 % L=2.0 H=10.0 21270-2 LOINC %EOS 5.3 % L=0.0 H=6.0 713-8 LOINC %BASO 0.7 % L=0.0 H=3.0 706-2 LOINC #NEUT 3.7 10^3uL L=1.9 H=7.6 55057-9 LOINC #LYMPH 1.2 10^3uL L=0.9 H=4.9 01850-0 LOINC #MONO 0.3 10^3uL L=0.1 H=0.9 28450-4 LOINC #EOS 0.3 10^3uL L=0.0 H=0.6 712-0 LOINC #BASO 0.04 10^3uL L=0.00 H=0.10 49697-2 LOINC #IM GRANS 0.0 10^3uL L=0.0 H=7.0 97909-5 LOINC %IM GRANS 0.7 % L=0.0 H=5.0 05375-8 LOINC %NRB 0.0 L=0.0 H=0.2 57742-9 LOINC #NRB 0.000 L=0.000 H=0.012 09059-4 LOINC MANUAL DIFF NOT INDICATED RBC MORPH NOT INDICATED Social History Type Status Start Date End Date Code Code Syst em Smoking History Never smoker (Never Smoked) 739023959 SNOMED CT Sex Male Medications Medication Start Date End Date Route Frequency Dose Code Code System Medication Instructions Home Meds Acetaminophen 325MG Oral Tablet 12/17/2017 Unknown ORAL NEEDED 325 MILLIGRAMS 040674 RxNorm TAKE 325 MILLIGRAMS ORAL NEEDED Sertraline 50MG Oral Tablet 12/17/2017 Unknown ORAL EVERY 24 HOURS 75 MILLIGRAMS 781933 RxNorm TAKE 75 MILLIGRAMS ORAL EVERY 24 HOURS MiraLAX 17GM/1Dose Oral Powder for Solution 12/17/2017 Unknown BY MOUTH NEEDED DAILY 17 GRAMS 153957 RxNorm TAKE 17 GRAMS BY MOUTH NEEDED [...] Code System No Known Drug Allergies Active 038179877 [employer] No Known Drug Allergies Active 808910709 SNOMED-[employer] Plan of Treatment No Data Found Encounters Encounter Diagnosis Start Date Code Code Sys tem Other alf (current) drug therapy 09/28/2023 SNOMED-CT Personal Care Team Section Performer Name Performer Role Active Date Inactive Da te
== END 2024-08-10 08:00 | disposition home or self-care (01) ==
LOC: ANHAUDIO 08:00
PROVIDERS: PCP Family Medicine; Visit Provider Family Medicine
DX: Z01.10 Encounter for examination of ears and hearing without abnormal findings (principal); H90.42 Sensorineural hearing loss, unilateral, left ear, with unrestricted hearing on the contralateral side
CPT/HCPCS: 92557; 92567